=== PATIENT | female | born 1965 | race Caucasian/White ===

== ENCOUNTER 2016-12-30 16:22 | Emergency (ER) | payer BC, OTHER ==
[2016-12-30 17:03] VITALS: BP 118/76
--- NOTE | 2016-12-30 19:08 | UC ---
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 woke up the next day went to work and partway throught the morning the pain started to increase was able to move her legs like normal due to back pain constant aching pain that radiates into her hips and tailbone has been laying flat with some relief moving bending forward makes the pain worse took some ibuprofen for pain denies fever or incontinence - History of Current Complaint Chief Complaint: UCBackPain Stated Complaint: BACK PAIN Time Seen by Provider: 12/30/16 19:01 Hx Obtained From: Patient - Allergies/Home Medications Allergies/Adverse Reactions: Allergies Allergy/AdvReac Type Severity Reaction Status Date / Time Metformin Allergy Nausea Verified 12/30/16 17:03 Home Medications: Home Medications Cholecalciferol TAB* [Vitamin D TAB*] 5,000 units PO DAILY 12/30/16 [History Confirmed 12/30/16] Cholesterol Med 1 tab PO DAILY 12/30/16 [History Confirmed 12/30/16] Lisinopril/HCTZ 20/12.5(NF) [Zestoretic 20/12.5(NF)] 1 tab PO DAILY 12/30/16 [ History Confirmed 12/30/16] PMH/Surg Hx/FS Hx/Imm Hx Previously Healthy: Yes Endocrine History Of: Reports: Diabetes Cardiovascular History Of: Reports: Hypertension Denies: Pacemaker/ICD GI/ History Of: Denies: Renal Disease - Surgical History Surgical History: Yes Surgery Procedure, Year, and Place: 1977 benign tumor removal abd, tubaligation , gallbladder removal - Family History Known Family History: Positive: Cardiac Disease, Hypertension, Diabetes - parents - Social History Occupation: Employed Full-time Lives: With Family Alcohol Use: Rare Substance Use Type: None Smoking Status (MU): Heavy Every Day Tobacco Smoker Amount Used/How Often: 1/2 ppd Length of Time of Smoking/Using Tobacco: started age 24 Review of Systems Constitutional: Negative Skin: Negative Eyes: Negative ENT: Negative Respiratory: Negative Cardiovascular: Negative Gastrointestinal: Negative Genitourinary: Negative Motor: Negative Neurovascular: Negative Musculoskeletal: Other: - back pain Neurological: Negative Psychological: Negative All Other Systems Reviewed And Are Negative: Yes Physical Exam Triage Information Reviewed: Yes Appearance: Well-Nourished, Pain Distress Vital Signs: Initial Vital Signs Temp 98.1 F 12/30/16 16:57 Pulse 86 12/30/16 16:57 Resp 16 12/30/16 16:57 BP 118/76 12/30/16 16:57 Pulse Ox 100 12/30/16 16:57 Vital Signs Reviewed: Yes Eyes: Positive: Conjunctiva Clear ENT: Positive: Pharynx normal, TMs normal Neck: Positive: No Lymphadenopathy Respiratory: Positive: Lungs clear, Normal breath sounds, No respiratory distress Cardiovascular: Positive: RRR, No Murmur, Pulses Normal Abdomen Description: Positive: Nontender, Soft Bowel Sounds: Positive: Present Musculoskeletal: Positive: Other: - left paraspinal tenderness no pain with percussion of spinal processes no brusiong or edema Full ROM Neurological: Positive: Alert, Other: - patellar reflexes intact SLR negative normal gait Psychological Exam: Normal Skin Exam: Normal Back Pain Course/Dx - Differential Dx/Diagnosis Differential Diagnosis/HQI/PQRI: Herniated Disc, Strain, Sprain Provider Diagnoses: lower back pain Discharge - Discharge Plan Condition: Stable Disposition: HOME Patient Education Materials: Lumbar Radiculopathy (ED) Forms: *Work Release Additional Instructions: Take flexeril as directed. Do not drink, drive or operate heavy machinery while on flexeril. Take ibuprofen for fever or pain. Please call physical therapist for further evaluation and treatment of your lower back pain. Increase fluids and rest. Please review your discharge instructions. If your symptoms do not improve please call your primary care provider or return to urgent care.
== END 2016-12-30 19:29 | disposition home or self-care (01) ==
LOC: UCCORT 16:22
DX: M54.5 Low back pain (principal); I10 Essential (primary) hypertension; E11.9 Type 2 diabetes mellitus without complications; F17.210 Nicotine dependence, cigarettes, uncomplicated; Z88.8 Allergy status to other drugs, medicaments and biological substances
CPT/HCPCS: 99212; G0463